=== PATIENT | female | born 1945 | race Caucasian/White ===

== ENCOUNTER 2017-11-05 14:54 | Emergency (ER) | payer MEDICARE, BC ==
--- NOTE | 2017-11-05 15:44 | ED Physician Documentation ---
Sore Throat/Dental Pain - HISTORIAN Historian: patient, spouse - HPI Stated Complaint: sore throat and cough Chief Complaint: Cough/ Upper Respiratory Additional Information: onset 5days ago cough occ prod sl fever lethargy. had similar several days ago took antibiotics better now. Onset: days ago (5) Associated Symptoms: fever, sore throat, moderate, congestion, cough - ROS CONST: no problems CVS/RESP: shortness of breath GI/: denies: problems urinating, nausea, vomiting NEURO/PSYCH: none - PAST HX Past History: other (DM HTN LO THRYOID) Immunizations: influenza, UTD Allergies/Adverse Reactions: Allergies Allergy/AdvReac Type Severity Reaction Status Date / Time No Known Allergies Allergy Verified 11/05/17 15:06 Home Medications: Ambulatory Orders Medication Instructions Recorded Unobtainable [Unobtainable] 11/05/17 - SOCIAL HX Smoking History: non-smoker Alcohol Use: none Drug Use: none - FAMILY HX Family History: Yes ( recently had similar) - VITAL SIGNS Vital Signs: Vital Signs Temp Pulse Resp BP Pulse Ox 98.5 F 85 16 136/70 97 11/05/17 14:54 11/05/17 14:54 11/05/17 14:54 11/05/17 14:54 11/05/17 14:54 - REVIEWED ASSESSMENTS Nursing Assessment Reviewed: Yes Vitals Reviewed: Yes ED Results Lab/Radiology - Lab Results Lab Results: Lab Results 11/05/17 11/05/17 16:17 16:17 WBC 7.60 K/ul K/ul (4.00-12.00) RBC 3.92 M/ul M/ul (3.90-5.20) Hgb 11.1 g/dL L g/dL (12.0-16.0) Hct 33.1 % L % (34.5-46.5) MCV 84.4 fl fl (80.0-100.0) MCH 28.4 pg pg (28.0-34.0) MCHC 33.7 g/dL g/dL (30.0-36.0) RDW 13.3 % % (11.3-14.3) Plt Count 260 K/mm3 K/mm3 (130-400) Neut % (Auto) 82.3 % H % (39.0-79.0) Lymph % (Auto) 8.2 % L % (16.0-50.0) Hart % (Auto) 5.0 % % (0.0-11.0) Eos % (Auto) 2.5 % % (0.0-6.8) Baso % (Auto) 0.6 (0.0-1.5) Neut # (Auto) 6.3 # k/uL # k/uL (1.4-7.7) Lymph # (Auto) 0.6 # k/uL # k/uL (0.6-4.0) Hart # (Auto) 0.4 # k/uL # k/uL (0.0-0.9) Eos # (Auto) 0.2 # k/uL # k/uL (0.0-0.6) Baso # (Auto) 0.0 # k/uL # k/uL (0.0-0.5) Reactive Lymphs % 1.4 % % (0.0-5.0) Reactive Lymphs # 0.1 # k/uL # k/uL (0.0-0.8) Sodium 140 mmol/L mmol/L (136-145) Potassium 3.8 mmol/L mmol/L (3.5-5.1) Chloride 99 mmol/L mmol/L (98-107) Carbon Dioxide 26 mmol/L mmol/L (22-30) BUN 16 mg/dL mg/dL (7-17) Creatinine 0.80 mg/dL mg/dL (0.52-1.04) Estimated Creat Clear 100 Est GFR ( Amer) > 60 (60 - ) Est GFR (Non-Af Amer) > 60 (60 - ) Glucose 160 mg/dL H mg/dL (74-106) Calcium 9.6 mg/dL mg/dL (8.4-10.2) Total Bilirubin 0.3 mg/dL mg/dL (0.2-1.3) AST 31 U/L U/L (15-46) ALT 39 U/L U/L (13-69) Alkaline Phosphatase 102 U/L U/L (38-126) Total Protein 8.2 g/dL g/dL (6.3-8.2) Albumin 4.4 g/dL g/dL (3.5-5.0) - Radiology Radiology Impressions: lab satis - Orders Orders: ED Orders Category Date Time Status CHEST P.A.&LAT 2 VIEWS [RAD] Stat Exams 11/05/17 Completed CBC/PLATELET/DIFF Routine Lab 11/05/17 16:17 Completed CMP Routine Lab 11/05/17 16:17 Completed Rapid Strep [GRP A STREP SCREEN] Stat Lab 11/05/17 Ordered Sore throat Physical Exam - EXAM General Appearance: mild distress, moderate distress Head/Neck: head nml inspection. No: pain over sinuses, mandibular swelling (R) , mandibular swelling (L), cervical lymphadenopathy Eyes: eyes nml inspection Mouth/Throat: no air way problems, membranes nml. No: pharynx nml (slight to no redness), pharyngeal erythema Ear/Nose: nml inspection. No: TM erythema Respiratory: stridor, wheezes, rhonchi. No: breath sounds nml CVS: reg. rate & rhythm, heart sounds nml Abdomen: non-tender Extremities: non-tender, nml ROM Skin: warm/dry, normal color. No: cyanosis, diaphoresis, jaundice, mottled Neuro/Psych: oriented x3, mood/affect nml Discharge Clincal Impression: viral resp infection Referrals: Ross Huff [Primary Care Provider] - 2 Days Comments: requests rx for antibiotics-they will hold for day or so use only pcp says yes or sy sig worsen Condition: Good Disposition: 01 HOME, SELF-CARE Decision to Admit: NO Decision Time: 17:33
[2017-11-05 16:31] LABS: BASOPHILS % 0.6 (0.0-1.5); EOSINOPHILS % 2.5 % (0.0-6.8); MEAN CORPUSCULAR HEMOGLOBIN 28.4 pg (28.0-34.0); MEAN CORPUSCULAR VOLUME 84.4 fl (80.0-100.0); NEUTROPHILS # 6.3 # k/uL (1.4-7.7)
[2017-11-05 16:37] LABS: eGFR (African) > 60; eGFR (Non-African) > 60
--- NOTE | 2017-11-05 16:44 | Diagnostic Imaging Report ---
[facility] [id number] [facility].[address] [id number] Report Submission Date: Nov 05, 2017 4:05:41 PM MEDICAL HOUSEKEEPER Patient Study Name: SULMA CRANDALL Date: Nov 05, 2017 3:48:43 PM MEDICAL HOUSEKEEPER Modality Type: CR Gender: F Description: CHEST : 43 Institution: [facility] Physician: MARLON ÁLVAREZ Examination: PA and lateral chest. History: Evaluate lung caraballo. Comparison exam: None provided Findings: PA lateral chest demonstrate a normal cardiac and mediastinal silhouette. Significant elevation of the right hemidiaphragm. Chronic interstitial changes. Vascular calcifications involve the aortic arch. No focal infiltrate. No blunting of the costophrenic margins. Osseous structures are appropriate for age. Impression: Chronic parenchymal changes. No acute appearing pulmonary process. Electronically signed on Nov 05, 2017 4:05:41 PM MEDICAL HOUSEKEEPER by: Juan OCAMPO
[2017-11-05 17:49] VITALS: BP 130/80
== END 2017-11-05 17:40 | disposition home or self-care (01) ==
LOC: ED 14:54
DX: B34.9 Viral infection, unspecified (principal)
CPT/HCPCS: 71020; 80053; 85025; 87070; 87880; 99282